=== PATIENT | male | born 1975 | race Caucasian/White ===

== ENCOUNTER 2016-07-26 14:58 | Inpatient (IN) | payer MEDICAID ==
--- NOTE | ~2016-07-26 | PN ---
Unit #: [id number] #: [id number] Patient: JHON WHITING [id number] [facility] [address] [place] [address] [id number] I MR#: [id number] NAME: JHON WHITING. ROOM: P201 Age: 40 Sex: M Admission Date: 07/26/2016 : 1975 Attending Physician: Nate Winchester M.D. Admitting Physician: Nate Winchester M.D. Primary Care Physician: Generic Doctor Not In System [facility] PROGRESS NOTES DATE 07/31/2016 DISCUSSION The patient continues to exhibit symptoms of active alcohol withdrawal. At 12 noon, his pulse remained elevated at 112 requiring lorazepam. Plan to discharge today will be held given this development. The patient has been accepted at "[facility]" on Friday. Dictated by... Nate Winchester M.D. CB/toyin TD: 07/31/2016 13:27 JOB #: [id number] [facility] PROGRESS NOTES Page 1 of 1 X Nate Winchester MD PROGRESS NOTE
--- NOTE | ~2016-07-26 | PN ---
Unit #: [id number] #: [id number] Patient: JHON WHITING [id number] [facility] [address] [place] [address] [id number] I MR#: [id number] NAME: JHON WHITING. ROOM: P201 Age: 40 Sex: M Admission Date: 07/26/2016 : 1975 Attending Physician: Nate Winchester M.D. Admitting Physician: Nate Winchester M.D. Primary Care Physician: Generic Doctor Not In System [facility] PROGRESS NOTES DATE 07/29/2016 DISCUSSION The patient is abed today and awakens with some difficulty. He exhibits little in the way of signs or symptoms of withdrawal and states that he plans to go "[facility]" upon his discharge from the hospital which should take place tomorrow. Dictated by... Nate Winchester M.D. CB/flaquita TD: 07/29/2016 14:55 JOB #: [id number] [facility] PROGRESS NOTES Page 1 of 1 X Nate Winchester MD PROGRESS NOTE
--- NOTE | ~2016-07-26 | PA ---
Unit #: [id number] #: [id number] Patient: JHON WHITING [id number] [place] [address] [id number] I MR#: [id number] NAME: JHON WHITING. ROOM: [facility] Age: 40 Sex: M Admission Date: 07/26/2016 : 1975 Date of Assessment: 07/27/2016 Attending Physician: Nate Winchester M.D. Admitting Physician: Nate Winchester M.D. Primary Care Physician: Generic Doctor Not In System PSYCHIATRIC ASSESSMENT IDENTIFYING INFORMATION The patient is a 40-year-old white female admitted to the [address] [place] [address] for alcohol detox. CHIEF COMPLAINT None given. INFORMANT(S) Chart. Patient cannot be aroused for interview. HISTORY OF PRESENT ILLNESS The patient is a 40-year-old white male with a history of alcohol dependence. He presented to this facility with a blood alcohol of 267 and a CIWA score of 20 yesterday. The patient reports ongoing heavy alcohol use and does report a history of withdrawal seizure. He was last hospitalized to this facility under the care of Dr. Sky in April of this year under similar circumstances. When seen today, the patient is sleeping soundly, and multiple attempts to arouse him are unsuccessful. For more complete history of present illness, please refer to previously dictated notes. PAST PSYCHIATRIC HISTORY Reviewed, no changes. PAST MEDICAL HISTORY Reviewed, no changes. MEDICATIONS None. ALLERGIES None. FAMILY HISTORY Noncontributory. SOCIAL HISTORY Reviewed, no changes. MENTAL STATUS EXAMINATION Examination at this time reveals the patient to be a soundly sleeping white male appearing stated age. She is in no apparent physical distress at the time of examination. Unit #: [id number] #: [id number] Patient: JHON WHITING ASSETS AND LIABILITIES The patient's assets are to be assessed. Liabilities: Ongoing substance use. DIAGNOSTIC IMPRESSION 1. Alcohol use disorder. 2. Alcohol withdrawal seizure by history. TREATMENT PLAN The patient remains hospitalized for safety and stabilization. Seizure precautions are in place, and routine detoxification for alcohol has been initiated. The patient will participate in appropriate order of milieu activities once able to do so, and we will confer with his nursing home social worker regarding post-discharge chemical dependence treatment options. ESTIMATED LENGTH OF STAY 5 days. Dictated by... Patricia Stout TD: 07/27/2016 14:24 JOB #: [id number] PSYCHIATRIC ASSESSMENT Page 1 of 1 X Nate Winchester MD PSYCHIATRIC ASSESSMENT
--- NOTE | ~2016-07-26 | DS ---
Unit #: [id number] #: [id number] Patient: JHON WHITING [id number] [place] [address] [id number] I MR#: [id number] NAME: JHON WHITING. ROOM: [facility] Age: 40 Sex: M Admission Date: 07/26/2016 : 1975 Discharge Date: 08/01/2016 Attending Physician: Nate Winchester M.D. Primary Care Physician: Generic Doctor Not In System DISCHARGE SUMMARY REASON FOR ADMISSION The patient is a 40-year-old single white male, admitted for alcohol detox. HOSPITAL COURSE The patient was admitted to the [address] [place] [address] unit and placed on alcohol detox precautions. His detox was a surprisingly arduous one, but by 08/01/2016, the patient was in brighter spirits and exhibiting no signs or symptoms of withdrawal. On that date, he had made arrangements to go to "[facility]" and discharge was ordered. FINAL DIAGNOSES Alcohol use disorder, alcohol withdrawal, and seizures by history. DISPOSITION ON DISCHARGE No psychotropic or other medications were ordered at the time of discharge. FOLLOWUP Followup will take place through the auspices of "[facility]." PROGNOSIS The patient's prognosis is considered fair. Dictated by... Nate Winchester M.D. CB/idalmis TD: 08/01/2016 18:48 JOB #: [id number] DISCHARGE SUMMARY Page 1 of 1 X Nate Winchester MD X DISCHARGE SUMMARY
--- NOTE | ~2016-07-26 | HP ---
Unit #: [id number] #: [id number] Patient: REED WHITING [id number] [place] [address] [id number] I MR#: [id number] NAME: REED WHITING. ROOM: [facility] Age: 40 Sex: M Admission Date: 07/26/2016 : 1975 Attending Physician: Nate Winchester M.D. Admitting Physician: Nate Winchester M.D. Primary Care Physician: Andrea Doctor Not In System HISTORY AND PHYSICAL HISTORY OF PRESENT ILLNESS Reed is a 40 year old admitted to [address] [place] [address] because of his continued abuse of alcohol. He was recently discharged from this facility after treatment for the same. PAST MEDICAL HISTORY 1. Long history of alcohol abuse. 2. History of withdrawal seizures. PAST SURGICAL HISTORY Nothing reported. ALLERGIES No known drug allergies. SOCIAL HISTORY Dips snuff. Drinks alcohol on a daily basis and denies illicit drug use. FAMILY HISTORY Medically noncontributory. REVIEW OF SYSTEMS CONSTITUTIONAL: No fever or chills. HEENT: Denies any sore throat, ear pain or runny nose. CARDIOVASCULAR: Denies chest pain, irregular heart rhythm or palpitations. CHEST: Denies shortness of breath or cough. No hemoptysis. GASTROINTESTINAL: Denies nausea, vomiting, diarrhea or chronic constipation. ENDOCRINE: Denies history of increased thirst or urination. No recent significant weight loss or gain. GENITOURINARY: Denies dysuria, frequency, or hematuria. SKIN: He reports a rash along his buttocks. He tells us that he has been sleeping in the reid and has urinated on himself more than once. HEMATOLOGIC: Denies history of increased bleeding or bruising. MUSCULOSKELETAL: Denies any hot, swollen joints. No generalized muscle pain. NEUROLOGIC: Denies problems with vision or speech. No frequent, severe headaches. No numbness, tingling or weakness in any extremities. Denies loss of bladder or bowel control. CURRENT MEDICATIONS 1. Detox protocol. 2. Nicotine patch 7 mg daily. Unit #: [id number] #: [id number] Patient: REED WHITING PHYSICAL EXAMINATION GENERAL: Alert, well-nourished, in no apparent distress. VITAL SIGNS: Blood pressure 110/66, heart rate 80, respirations 16, temperature 98.6. WEIGHT: 205. HEIGHT: 5 feet 10 inches. SKIN: Warm and dry. He has scattered red popular rash on his buttocks. There is no increased redness, swelling, heat or pus noted. HEENT: Normocephalic. TMs not viewed. Oral and nasal passages clear. Conjunctivae clear. PERRLA. EOMs intact. NECK: Supple without lymphadenopathy or thyromegaly. HEART: Regular rate and rhythm without murmur. LUNGS: Clear. ABDOMEN: Soft, nontender. : Not done. EXTREMITIES: No evidence of cyanosis, clubbing or edema. Moves all without focal deficit. NEUROLOGICAL: Grossly within normal limits. Cranial Nerves: II: Visual demarco are intact. III, IV AND : Extraocular movements are intact. Pupils are equal, round and reactive to light. V: Facial sensation is grossly normal. VII: Facial movements and expression are normal. VIII: Auditory acuity grossly intact. IX, X: Uvula is midline. Phonation is normal. XI: Patient shrugs shoulders and turns head normally. XII: Tongue protrudes in the midline. Sensory and Motor Function: Sensory and motor sensation is grossly normal. Motor: moves all extremities well. Coordination: Gait is normal. Deep Tendon Reflexes: Intact. IMPRESSION Psychiatric admission. RECOMMENDATIONS PSYCHIATRIC: Per psychiatrist. MEDICAL: 1. See no contraindications to participate in facility's activities. 2. Desitin ointment to the rash on his "behind." MEDICAL PROGNOSIS Good. MEDICAL CONDITION Stable. Dictated by... Poornima Collins P.A.-C. for Patricia King/flaquita TD: 07/27/2016 17:47 JOB #: [id number] Unit #: [id number] #: [id number] Patient: REED WHITING HISTORY AND PHYSICAL Page 1 of 1 X Poornima Collins HISTORY AND PHYSICAL
--- NOTE | ~2016-07-26 | PN ---
Unit #: [id number] #: [id number] Patient: JHON WHITING [id number] [facility] [address] [place] [address] [id number] I MR#: [id number] NAME: JHON WHITING. ROOM: [facility] Age: 40 Sex: M Admission Date: 07/26/2016 : 1975 Attending Physician: Nate Winchester M.D. Admitting Physician: Nate Winchester M.D. Primary Care Physician: Generic Doctor Not In System [facility] PROGRESS NOTES DATE 07/28/2016 DISCUSSION The patient is again abed resting comfortably. Staff reports no management issues. The patient continues to exhibit symptoms of alcohol withdrawal mainly (1)____ ____ he required a p.r.n. dose of Phenergan earlier today. Dictated by... Nate Winchester M.D. CB/terra TD: 07/29/2016 02:58 JOB #: [id number] [facility] PROGRESS NOTES Page 1 of 1 X Nate Winchester MD X PROGRESS NOTE
--- NOTE | ~2016-07-26 | PN ---
Unit #: [id number] #: [id number] Patient: JHON WHITING [id number] [facility] [address] [place] [address] [id number] I MR#: [id number] NAME: JHON WHITING. ROOM: P201 Age: 40 Sex: M Admission Date: 07/26/2016 : 1975 Attending Physician: Nate Winchester M.D. Admitting Physician: Nate Winchester M.D. Primary Care Physician: Generic Doctor Not In System [facility] PROGRESS NOTES DATE 07/30/2016 DISCUSSION The patient is abed today complaining of severe abdominal discomfort and vomiting. He continues to exhibit symptoms of alcohol withdrawal and we will continue his stay in the hospital pending resolution of these symptoms. Dictated by... Nate Winchester M.D. CB/terra TD: 07/31/2016 04:56 JOB #: [id number] [facility] PROGRESS NOTES Page 1 of 1 X Nate Winchester MD X PROGRESS NOTE
[2016-07-27 11:26] LABS: BASOPHIL% 0.6 % (0-2.5); EOSINOPHIL# 0.1 X10e3 (0-0.7); EOSINOPHIL% 2.1 % (0.0-7.0); HEMATOCRIT 37.9 % (38.0-50.0); HEMOGLOBIN 12.8 gm/dL (13.0-16.0); LYMPHOCYTE# 1.6 X10e3 (1.0-3.5); LYMPHOCYTE% 29.5 % (17.0-45.0); MEAN CELL VOLUME 96.5 FL (83-96); MEAN CORPUSCULAR HEMOGLOBIN 32.7 PG (28-34); MEAN CORPUSCULAR HGB CONC 33.9 g/dL (30-36); MEAN PLATELET VOLUME 7.3 FL (6.5-11.5); MONOCYTE# 0.6 X10e3 (0-1.0); MONOCYTE% 11.4 % (3.0-12.0); NEUTROPHIL% 56.4 % (40-75); PLATELET COUNT 253 X10e3 (140-420); RED BLOOD COUNT 3.92 X10e (3.90-5.60); RED CELL DISTRIBUTION WIDTH 14.8 % (11.0-15.5); WHITE BLOOD COUNT 5.3 X10e3 (4.0-10.5)
[2016-07-27 11:33] LABS: URINE APPEARANCE CLEAR; URINE BILIRUBIN NEG (NEG); URINE BLOOD NEG (NEG); URINE COLOR YELLOW; URINE GLUCOSE NEG (NEG); URINE KETONE NEG (NEG); URINE LEUKOCYTE ESTERASE NEG (NEG); URINE NITRATE NEG (NEG); URINE PROTEIN NEG (NEG); URINE SPECIFIC GRAVITY 1.009 (1.003-1.035); URINE UROBILINOGEN 0.2 MG/DL (NEG)
[2016-07-27 11:37] LABS: DIFF IND NO
[2016-07-27 11:39] LABS: THYROID STIMULATING HORMONE 2.24 uIU/ml (0.34-5.60)
[2016-07-27 11:42] LABS: ALBUMIN SERUM 3.6 g/dL (3.5-5.0); BUN/CREATININE RATIO 23.75; CREATININE SERUM 0.8 mg/dL (0.6-1.4); GLOM FILT RATE Estimated 112.6 mL/min (>60); POTASSIUM 3.9 mmol/L (3.5-5.1); PROTEIN TOTAL SERUM 6.5 g/dL (6.0-8.3)
[2016-07-27 11:46] LABS: FREE THYROXIN (T4) 0.99 ng/dL (0.58-1.64)
[2016-07-27 12:46] LABS: AMPHETAMINE NEG (NEG); BARBITURATES NEG (NEG); BENZODIAZEPINES NEG (NEG); COCAINE NEG (NEG); MARIJUANA NEG (NEG); OPIATES NEG (NEG); TRICYCLIC ANTIDEPRESSANTS NEG (NEG); U METHADONE NEG (NEG)
== END 2016-08-01 14:52 | disposition home or self-care (01) | DRG 897 ==
LOC: P2S 14:58
PROVIDERS: Specialist
PROC: HZ2ZZZZ Detoxification Services for Substance Abuse Treatment (ICD-10-PCS; principal; 2016-07-26)
DX: F10.230 Alcohol dependence with withdrawal, uncomplicated (principal)
CPT/HCPCS: 80053; 80307; 81003; 84439; 84443; 85025; 86592; J2550